=== PATIENT | male | born 1945 | race Caucasian/White ===

== ENCOUNTER 2024-01-21 14:16 | Outpatient (CLI) | payer MEDICARE | END 2024-01-21 14:17 | disposition home or self-care (01) | LOC: CSHMRI 14:16 | PROVIDERS: ATTEND Specialist | DX: M47.26 Other spondylosis with radiculopathy, lumbar region (principal); M54.12 Radiculopathy, cervical region; M48.02 Spinal stenosis, cervical region; Z98.890 Other specified postprocedural states | CPT/HCPCS: 72141; 72148 ==